=== PATIENT | female | born 1970 | race Caucasian/White ===

== ENCOUNTER 2016-09-17 20:47 | Emergency (ER) | payer OTHER ==
[~2016-09-17] VITALS: Ht 170.2 cm; Wt 91.3 kg
[~2016-09-17 20:47] MED LIST: CITA-48 PO; PRIL10CA PO; ROBISYP PO
[2016-09-17 20:49] VITALS: BP 133/82; PULSE 106; RESP 18; TEMP 99.5; O2SAT 97
[2016-09-17] MEDS ORDERED: OMEP10CA PO (21:08)
[2016-09-17] MEDS ORDERED: CITA40TA4 PO (21:08)
--- NOTE | 2016-09-17 21:11 | PD ---
HPI Chief Complaint: Abdominal Pain Time Seen by Provider: 20:59 Travel History International Travel<30 days: No Contact w/Intl Traveler<30days: No Traveled to known affect area: No History of Present Illness HPI The patient was seen and examined in the presence of the nurse. This patient complains of epigastric pain. It radiates toward her back. She has history of occasional flares of pancreatitis and this feels exactly the same. She drank alcohol last on Thursday. She typically is a weekend drinker. She has no gallbladder. No lower quadrant pains. No vomiting or diarrhea. She did have some nausea. Severity is moderate. No alleviating factors. Duration is one week PFSH Past Medical History Blood Disorders: No Cancer: No Cardiovascular Problems: No Diabetes: No Diminished Hearing: No Endocrine: No Gastrointestinal Disorders: Yes GERD: Yes Genitourinary: No Hepatitis: No Hiatal Hernia: No Immune Disorder: No Musculoskeletal: No Neurologic: No Psychiatric: No Reproductive: No Respiratory: No Immunizations Current: No Pancreatitis: Yes (09/04-08/05) Ulcer: No ?: Not LMP: 6 WEEKS AGO SKIPS Past Surgical History Abdominal Surgery: No Appendectomy: No Cardiac Surgery: No Cholecystectomy: Yes Ear Surgery: No Endocrine Surgery: No Eye Surgery: No Genitourinary Surgery: No Gynecologic Surgery: No Oral Surgery: No Thoracic Surgery: No Other Surgery: Yes (KNEE) Social History Alcohol Use: Yes (WEEKENDS) Tobacco Use: Yes (5 PER DAY) Substance Use: No Allergies-Medications (Allergen,Severity, Reaction): Coded Allergies: Shrimp (Verified Allergy, Mild, 09/17/16) Reported Meds & Prescriptions Reported Meds & Active Scripts Active Zofran (Ondansetron HCl) 4 Mg Tab 4 Mg PO Q6HR PRN Percocet (Oxycodone-Acetaminophen) 5-325 mg Tab 1 Tab PO Q6H PRN Reported Hydrocodone-Acetaminophen 7.5-325 mg Tab 1 Tab PO Q4H PRN Citalopram (Citalopram Hydrobromide) 40 Mg Tab 40 Mg PO DAILY Omeprazole 10 Mg Cap 10 Mg PO DAILY Review of Systems General / Constitutional: No: Fever Eyes: No: Visual changes HENT: No: Headaches Cardiovascular: No: Chest Pain or Discomfort Respiratory: No: Shortness of Breath Gastrointestinal: Positive: Nausea, Abdominal Pain Genitourinary: No: Dysuria Musculoskeletal: No: Pain Skin: No Rash Neurologic: No: Weakness Psychiatric: No: Depression Endocrine: No: Polydipsia Hematologic/Lymphatic: No: Easy Bruising Physical Exam Narrative GENERAL: Well-nourished, well-developed patient in no apparent distress. SKIN: Warm and dry. HEAD: Atraumatic. Normocephalic. EYES: Pupils equal and round. No scleral icterus. No injection or drainage. ENT: No nasal bleeding or discharge. Mucous membranes pink and moist. NECK: Trachea midline. No JVD. CARDIOVASCULAR: Regular rate and rhythm. No murmur appreciated. RESPIRATORY: No accessory muscle use. Clear to auscultation. Breath sounds equal bilaterally. GASTROINTESTINAL: Abdomen soft, epigastrium is tender without rebound or guarding , nondistended. Hepatic and splenic margins not palpable. MUSCULOSKELETAL: No obvious deformities. No clubbing. No cyanosis. No edema. NEUROLOGICAL: Awake and alert. No obvious cranial nerve deficits. Motor grossly within normal limits. Normal speech. PSYCHIATRIC: Appropriate mood and affect; insight and judgment normal. Data Data Last Documented VS Vital Signs Date Time Temp Pulse Resp B/P Pulse Ox O2 Delivery O2 Flow Rate FiO2 09/17/16 22:09 103 18 145/72 95 Room Air 09/17/16 20:49 99.5 Orders Iv Access Insert/Monitor (09/17/16 21:06) Complete Blood Count With Diff (09/17/16 21:06) Comprehensive Metabolic Panel (09/17/16 21:06) Lipase (09/17/16 21:06) Ondansetron Inj (Zofran Inj) (09/17/16 21:15) Sodium Chlor 0.9% 1000 Ml Inj (Ns 1000 M (09/17/16 21:15) Labs Laboratory Tests Test 09/17/16 21:35 White Blood Count 15.1 TH/MM3 Red Blood Count 4.53 MIL/MM3 Hemoglobin 12.4 GM/DL Hematocrit 36.4 % Mean Corpuscular Volume 80.2 FL Mean Corpuscular Hemoglobin 27.3 PG Mean Corpuscular Hemoglobin 34.1 % Concent Red Cell Distribution Width 16.1 % Platelet Count 298 TH/MM3 Mean Platelet Volume 8.8 FL Neutrophils (%) (Auto) 83.8 % Lymphocytes (%) (Auto) 11.2 % Monocytes (%) (Auto) 4.3 % Eosinophils (%) (Auto) 0.4 % Basophils (%) (Auto) 0.3 % Neutrophils # (Auto) 12.7 TH/MM3 Lymphocytes # (Auto) 1.7 TH/MM3 Monocytes # (Auto) 0.6 TH/MM3 Eosinophils # (Auto) 0.1 TH/MM3 Basophils # (Auto) 0.0 TH/MM3 CBC Comment DIFF FINAL Differential Comment Sodium Level 137 MEQ/L Potassium Level 3.8 MEQ/L Chloride Level 102 MEQ/L Carbon Dioxide Level 27.1 MEQ/L Anion Gap 8 MEQ/L Blood Urea Nitrogen 9 MG/DL Creatinine 0.58 MG/DL Estimat Glomerular Filtration 112 ML/MIN Rate Random Glucose 107 MG/DL Calcium Level 8.9 MG/DL Total Bilirubin 0.5 MG/DL Aspartate Amino Transf 18 U/L (AST/SGOT) Alanine Aminotransferase 25 U/L (ALT/SGPT) Alkaline Phosphatase 87 U/L Total Protein 7.4 GM/DL Albumin 3.2 GM/DL Lipase 2779 U/L [facility] Medical Decision Making Medical Screen Exam Complete: Yes Emergency Medical Condition: Yes Medical Record Reviewed: Yes Differential Diagnosis Differential diagnosis includes pancreatitis, biliary colic, hepatitis, GERD, peptic ulcer disease. Narrative Course I have reviewed the patient's electronic medical record. I saw her for the same thing in 2011 and she had a normal lipase at that time IV placed CBC is normal Metabolic profile is normal Lipase is elevated at 2700 LFTs are normal I gave her 1 L normal saline IV bolus and IV Zofran She drove herself here and is not getting a ride so I did not give her sedating medication Patient is stable for outpatient follow-up. Clear liquids for 24 hours then advance as able. Avoid alcohol. Wrote her medicine for pain and nausea Diagnosis Primary Impression: Acute alcoholic pancreatitis Qualified Code: K85.20 - Alcohol-induced acute pancreatitis without infection or necrosis Additional Instructions: The patient was advised to follow up with their physician and return if they worsen. The patient was warned about potential sedation for the medications they will receive on prescription. Avoid alcohol I have recommended clear liquids for 24 hours, then gradually advance as tolerated. Med/Other Pt SpecificInfo: Prescription(s) given Scripts Ondansetron (Zofran)4 Mg Tab4 Mg PO Q6HR PRN (NAUSEA OR VOMITING) #15 TAB Ref 0 Prov:Slade Baig MD 09/17/16 Oxycodone-Acetaminophen (Percocet)5-325 mg Tab1 Tab PO Q6H PRN (PAIN) #25 TAB Ref 0 Prov:Slade Baig MD 09/17/16 Disposition: 01 DISCHARGE HOME Condition: Stable Slade Baig MD Sep 17, 2016 21:11
[2016-09-17] MEDS ORDERED: HYDR-3580 PO (21:13)
[2016-09-17] MEDS ORDERED: SODIUM CHLOR 0.9% 1000 ML INJ 1,000 ML IV ONE (21:15)
[2016-09-17] MEDS ORDERED: ONDANSETRON HCL 4 MG/2 ML VIAL IVP ONE (21:15)
[2016-09-17 21:41] LABS: AUTOMATED NEUTROPHIL # 12.7 TH/MM3 (1.8-7.7); BASOPHIL % 0.3 % (0.0-2.0); EOSINOPHIL # 0.1 TH/MM3 (0-0.4); EOSINOPHIL % 0.4 % (0.0-4.0); HEMATOCRIT 36.4 % (35.0-46.0); HEMO FLAGS DIFF FINAL; LYMPH % 11.2 % (9.0-44.0); LYMPHOCYTE # 1.7 TH/MM3 (1.0-4.8); MEAN CELL VOLUME 80.2 FL (80.0-100.0); MEAN CORPUSCULAR HEMOGLOBIN 27.3 PG (27.0-34.0); MEAN CORPUSCULAR HGB CONC 34.1 % (32.0-36.0); MONO % 4.3 % (0.0-8.0); NEUT % 83.8 % (16.0-70.0); PLATELET COUNT 298 TH/MM3 (150-450); RED BLOOD COUNT 4.53 MIL/MM3 (4.00-5.30); RED CELL DISTRIBUTION WIDTH 16.1 % (11.6-17.2); WHITE BLOOD COUNT 15.1 TH/MM3 (4.0-11.0)
[2016-09-17 21:51] LABS: CHLORIDE 102 MEQ/L (98-107); POTASSIUM 3.8 MEQ/L (3.5-5.1); SODIUM (NA) 137 MEQ/L (136-145)
[2016-09-17 21:55] LABS: ANION GAP 8 MEQ/L (5-15); BICARBONATE 27.1 MEQ/L (21.0-32.0); BLOOD UREA NITROGEN 9 MG/DL (7-18)
[2016-09-17 21:58] LABS: ALT (GPT) 25 U/L (10-53); AST (GOT) 18 U/L (15-37); GLOMERULAR FILTRATION RATE 112 ML/MIN (>89)
[2016-09-17 21:59] LABS: TOTAL BILIRUBIN ADULT 0.5 MG/DL (0.2-1.0)
[2016-09-17 22:00] LABS: ALKALINE PHOSPHATASE 87 U/L (45-117)
[2016-09-17 22:09] VITALS: BP 145/72; PULSE 103; RESP 18; O2SAT 95
[2016-09-17] MEDS ORDERED: ZOFR4TAB PO (22:11)
[2016-09-17] MEDS ORDERED: PERC5TAB12 PO (22:11)
== END 2016-09-17 22:54 | disposition home or self-care (01) ==
LOC: PHED 20:47
DX: K85.20 Alcohol induced acute pancreatitis without necrosis or infection (principal); F17.210 Nicotine dependence, cigarettes, uncomplicated; F10.10 Alcohol abuse, uncomplicated
CPT/HCPCS: 80053; 83690; 85025; 96361; 96374; 99284; J2405; J7030